=== PATIENT | female | born 1955 | race Caucasian/White ===

== ENCOUNTER 2019-08-22 09:28 | Outpatient (CLI) | payer BC, SELFPAY ==
--- NOTE | 2019-08-22 09:45 | XR_ITS ---
WS: [id number] Examination: Right hip postop HISTORY: Total hip replacement on the right. FINDINGS: A prosthesis is seen replacing the right femoral head with a acetabular cuff. The overall a lignment is satisfactory. There is no loosening of the stem of the shaft of the prosthesis. XR/XR femur RT min 2V* [id number] IMPRESSION: Total hip replacement satisfactory on the right side.
== END 2019-08-22 09:29 | disposition home or self-care (01) ==
PROVIDERS: Family Provider Nurse Practitioner Family; PCP Registered Nurse; Visit Provider Nurse Practitioner Family
DX: M79.604 Pain in right leg (principal); Z96.641 Presence of right artificial hip joint
CPT/HCPCS: 73552

== ENCOUNTER → 2020-08-25 00:01 | Outpatient (BNVA) | payer OTHER, SELFPAY | PROVIDERS: Family Provider Nurse Practitioner Family; PCP Registered Nurse; Visit Provider Obstetrics & Gynecology | DX: N95.0 Postmenopausal bleeding (principal) | CPT/HCPCS: 88175 ==

== ENCOUNTER → 2020-09-03 10:30 | Outpatient (BNVA) | payer OTHER, SELFPAY | PROVIDERS: Family Provider Nurse Practitioner Family; PCP Registered Nurse; Visit Provider Obstetrics & Gynecology | DX: N95.0 Postmenopausal bleeding (principal); D25.9 Leiomyoma of uterus, unspecified; N83.201 Unspecified ovarian cyst, right side | CPT/HCPCS: 76830 ==

== ENCOUNTER → 2020-09-16 11:42 | Outpatient (BNVA) | payer OTHER, SELFPAY | PROVIDERS: Family Provider Nurse Practitioner Family; PCP Registered Nurse; Visit Provider Orthopaedic Surgery | DX: M25.569 Pain in unspecified knee (principal); M17.12 Unilateral primary osteoarthritis, left knee | CPT/HCPCS: 73560; 73565 ==

== ENCOUNTER → 2020-09-17 10:07 | Outpatient (BNVA) | payer OTHER, SELFPAY | PROVIDERS: Family Provider Nurse Practitioner Family; PCP Registered Nurse; Visit Provider Obstetrics & Gynecology | DX: N95.0 Postmenopausal bleeding (principal) | CPT/HCPCS: 81500; 86304; 88175; 88305 ==

== ENCOUNTER → 2020-10-17 14:02 | Outpatient (BNVA) | payer OTHER, SELFPAY | PROVIDERS: Family Provider Nurse Practitioner Family; PCP Registered Nurse; Visit Provider Obstetrics & Gynecology | DX: Z01.812 Encounter for preprocedural laboratory examination (principal); Z20.822 Contact with and (suspected) exposure to COVID-19 | CPT/HCPCS: 87635 ==

== ENCOUNTER 2020-10-23 10:12 | Inpatient (IN) | payer OTHER, SELFPAY ==
[2020-10-21 12:21] VITALS: BMI 33.4
--- NOTE | 2020-10-21 14:29 | P.ANESASSM_ITS ---
Pre-Anesthetic Assessment Pre-Anesthetic Assessment: Height/Weight: Height 1.68 m Weight 93.894 kg Proposed Procedure: Operation Date: 10/23/20 07:10 Proposed Procedures p Total Abdominal Hysterectomy 60904 N95.0(Not Applicable) - Joe Chery MD s Salpingo Oophorectomy (Open)(Bilateral) - Joe Dick MD Was Beta Sally taken within 24 hours: N/A Was Clonidine taken within 24 hours: N/A Social: Social History: No alcohol and No tobacco Exam: Pre-Anes Outpt Exam: alert, oriented x 3, clear to auscultation bilaterally and regular rate & rhythm Airway: Submandibular: WNL Cervical ROM: WNL MP: 2 Dentition: Full History/ROS: No significant history except as noted CV/HEM: CV/HEM: HTN Metabolic: Metabolic: Morbid obesity Anesthetic Plan: ASA status: 2 Anesthesia: General Risk of > 500 ml blood loss (7ml/kg in children): No PFSH Anesthesia PFSH: Medical History No pertinent past medical history Denies diabetes, asthma, seizures, DVT/PE PCP: Diana Hendrickson Surgical History Status post hip replacement 2019, right side, 2015, left side Status post tonsillectomy at age 11 Family History Mother Stroke Uterine cancer diagnosed at age 81-82 Denies family history of Colon cancer Ovarian cancer Diabetes Heart disease Hyperlipidemia Breast cancer Hypertension Thyroid condition Social History Smoking and tobacco status: never smoked Second hand smoke exposure: No Data Anesthesia Cardiac Studies: No Data to Display
[2020-10-23] VITALS (17 sets, daily range): BP systolic 135–172; BP diastolic 64–97; PULSE 52–83; RESP 15–20; TEMP 36.3–37.1; O2SAT 95–100
[2020-10-23] MEDS: sodium chloride 0.9% 1,000 ML 30 ML IV (06:49)
[2020-10-23 06:53] LABS: Basophils % 0.3 %; Eosinophils # 0.2 10^3/uL (0.0-0.8); Eosinophils % 2.3 %; Hematocrit 43.5 % (37.0-47.0); Hemoglobin 14.9 g/dL (11.5-15.3); Lymphocytes # 1.9 10^3/uL (0.8-4.8); Lymphocytes % 27.9 %; Mean Corpuscular HGB Conc 34.3 g/dL (30.0-36.0); Mean Corpuscular Hemoglobin 30.3 pg (28.0-34.0); Mean Corpuscular Volume 88.4 fL (81-99); Monocytes # 0.7 10^3/uL (0.2-0.9); Monocytes % 9.8 %; Neutrophils # 4.05 10^3/uL (1.8-7.7); Neutrophils % 59.4 %; Nucleated Red Blood Cells % 0 %; Platelet Count 249 10^3/cmm (130-400); Red Blood Count 4.92 10^6/uL (4.1-5.3); Red Cell Distribution Width 13.1 % (12.1-15.1); White Blood Count 6.8 10^3/uL (4.0-10.0)
--- NOTE | 2020-10-23 06:55 | W.PM.OPSUD ---
Surgery/Procedure H&P Update DATE OF PROCEDURE: October 23, 2020 DATE H&P PERFORMED: 09/24/20 H&P UPDATE INFORMATION: I have reviewed H&P completed within last 30 days, I have examined patient prior to procedure, No changes to prior documentation and H&P is in [facility] [place] EMR on date indicated PREOP DIAGNOSIS: Ovarian cyst, endometrial polyp PLANNED PROCEDURE: Operation Date: 10/23/20 07:00 Proposed Procedures p Total Abdominal Hysterectomy 20782 N95.0(Not Applicable) - Joe Dick MD s Salpingo Oophorectomy(Bilateral) - Joe Dick MD
--- NOTE | 2020-10-23 07:06 | P.ANESUD_ITS ---
Pre-Anesthetic Update Pre-Anesthetic Assessment: Date of Surgery/Procedure: 10/23/20 Preop [place]et[place] gnosis: Ovarian cyst, endometrial polyp Proposed Procedure: Operation Date: 10/23/20 07:00 Proposed Procedures p Total Abdominal Hysterectomy 41367 N95.0(Not Applicable) - Joe Chery MD s Salpingo Oophorectomy(Bilateral) - Joe Dick MD Any changes to Pre-Anesthetic Assessment?: No Last Intake: Intake Last Liquid Date 10/22/20 Last Liquid Time 23:59 Last Solid Date 10/22/20 Last Solid Time 22:00 Labs Last 48hrs: Laboratory Results - last 48 hr 10/23/20 06:44 WBC 6.8 RBC 4.92 Hgb 14.9 Hct 43.5 MCV 88.4 MCH 30.3 MCHC 34.3 RDW 13.1 Plt Count 249 MPV 9.0 Neut % (Auto) 59.4 Lymph % (Auto) 27.9 Hitchcock % (Auto) 9.8 Eos % (Auto) 2.3 Baso % (Auto) 0.3 Neut # (Auto) 4.05 Lymph # (Auto) 1.9 Hitchcock # (Auto) 0.7 Eos # (Auto) 0.2 Baso # (Auto) 0.0 Nucleated RBC % (a uto) 0 Nucleated RBCs # 0.0 Vitals: Temperature 97.6 F 10/23/20 06:10 Temperature Source Temporal Artery S can 10/23/20 06:10 Pulse Rate 83 10/23/20 06:10 Respiratory Rate 18 10/23/20 06:10 Blood Pressure 165/89 10/23/20 06:10 Blood Pressure Kayleen n 114 10/23/20 06:10 Pulse Oximetry 98 10/23/20 06:10 Oxygen Delivery Me thod 10/23/20 06:10 Exam: Pre-Anes Outpt Exam: alert, oriented x 3, clear to auscultation bilaterally and regular rate & rhythm Cardiac Studies: No Data to Display
[2020-10-23 07:13] LABS: Alanine Aminotransferase 29 U/L (0-33); Albumin Level 4.1 g/dL (3.5-5.2); Alkaline Phosphatase 75 IU/L (35-105); Anion Gap 15.5 (5-19); Aspartate Amino Transferase 23 U/L (0-32); Blood Urea Nitrogen 15 mg/dL (8-23); Calcium 8.5 mg/dL (8.5-10.5); Carbon Dioxide 25 mmol/L (22-29); Chloride 101 mmol/L (98-107); Globulin 2.7 g/dL (1.3-4.6); Glomerular Filtration Rate 124.6 mL/min (90-130); Glucose 101 mg/dL (65-115); Osmolality Calculated 287 mOsm/kg (285-295); Potassium 3.5 mmol/L (3.5-5.1); Sodium 138 mmol/L (136-145); Total Bilirubin 1.8 mg/dL (0.15-1.2); Total Protein 6.8 g/dL (6.6-8.7)
[2020-10-23] MEDS: ondansetron 2 mg/ML SDV 2 mL 4 MG IVP (10:34)
--- NOTE | 2020-10-23 10:47 | P.OP_ITS ---
Operative Report Date of procedure: October 23, 2020 OPERATIVE REPORT Date of surgery: 10/23/2020 Date of dictation:10/23/2020 Preoperative diagnosis: Preoperative right ovarian cyst, postmenopausal bleeding, endometrial polyp, Postoperative diagnosis/findings: Normal tubes and ovaries bilaterally, small uterus with fibroid noted of the left fundus. Large thin-walled blue cyst noted as soon as abdominal entry-it was adherent to the posterior cul-de-sac and ruptured with about 700 mL of clear fluid collected from this no clear origin of the cyst however what appears consistent with ovarian tissue-no pedicle noted to the right ovary. Procedure done: Total abdominal hysterectomy, bilateral salpingo-oophorectomy and removal of right ovarian cyst Specimens removed/disposition of specimens: Bilateral tubes ovaries uterus and cervix, ovarian cyst likely right ovarian origin Surgeon: Dr. Joe Trevizo it administrative assistant: Jose Daniel Mcmahon Anesthesia: General endotracheal tube anesthesia Estimated blood loss: 300 ml Intravenous fluids: 1200 mL of LR Urine output: 150 mL of clear urine at the end of procedure Medications: as per anesthesia records Complications: None, patient was extubated and taken to the recovery room in a stable condition PROCEDURE: After consent was obtained patient was taken to the operating room where she was placed under general anesthesia. Sequential compression boots and Ugarte catheter were placed. She was prepped and draped in the usual sterile fashion in a dorsal supine position. A vertical skin incision was made with a knife starting below the navel and extending down to the pubic symphysis. This was carried down to the fascia with electrocautery and a scalpel. Fascia was incised in the midline and extended both superiorly and inferiorly. Rectus muscles were in the midline. Peritoneum was identified and was sharply entered. Peritoneal incision was extended superiorly and inferiorly. Good hemostasis was achieved. -Upon entry into the peritoneal cavity a large blue thin-walled cyst was noted in the lower abdomen and ovary bilaterally and uterus and not visualized because of the position of the cyst. Pedicle was not identified and bluntly cyst was palpated. It was noted to be adherent to the posterior cul-de-sac an attempt was made to try to break down these adhesions bluntly since this area could not be seen. Pelvic washings were taken at this time. -After completion of pelvic washings effort was made to try to move the cyst in order to see the remainder of the pelvic cavity however during this manipulation the cyst ruptured with copious amounts of clear serous fluid draining--this was suctioned and there was about 700ml of cyst fluid obtained. -Once the cyst had deflated the pelvis was able to be visualized and bilateral ovaries and tubes are noted and seen clearly. The uterus overall look normal except for a 2 cm fibroid-pedunculated off the left fundus. The cyst was still noted to be adherent to the posterior cul-de-sac and was difficult to reach and decision was made to proceed with a hysterectomy first. -At this time the bowel was packed away and pelvis was visualized. No adhesions to the anterior abdominal wall--findings on pelvis as noted above. A Bookwalter retractor was then placed and the bowel was packed away in the upper abdomen with wet laparotomy sponges. The pelvis was inspected. No other abnormalities were noted other than what was mentioned previously. The left ovarian vessels were identified and a window was made in the broad ligament under this and any clamps were clamped over the IP ligament in a double fashion. The IP ligament was cut and then First a Shana stitch and then a free tie was placed . Good hemostasis was noted. The right round ligament was clamped cut and suture ligated with 0 Vicryl suture. The broad ligament was opened and the fallopian tube and ovarian ligament was clamped, cut and suture ligated with 0 Vicryl suture in a near and far fashion. It was tied with a free tie of 0 Vicryl suture. The broad ligament incision was extended inferiorly and carried over the lower uterine segment. No adhesions were noted from the bladder onto the uterus and the bladder was pushed down over the uterus without difficulty. The bladder was noted to be intact without any tears. The uterine vessels were skeletonized clamped and tied off. The left round ligament was clamped, cut and suture ligated with 0 Vicryl suture. The broad ligament was opened and the incision carried superiorly parallel to the left ovarian vessels. The ovarian ligament, fallopian tube was doubly clamped, cut and suture ligated with 0 Vicryl suture. The pedicle was tied with a free tie of 0 Vicryl suture. The broad ligament incision was extended inferiorly and carried over the lower uterine segment to meet with the dissection the contralateral side and a bladder flap was created. The bladder was then off from the cervix without any difficulty. The left uterine vessels were skeletonized clamped and tied off. Curved clamps were placed at the level of the internal os. These were cut, and then tied with 0 Vicryl suture bilaterally. The bladder was then sharply dissected away from the cervix until it was carried below the level of the cervix. The remaining portion of the parametria was then serially clamped, cut, and suture ligated with 0 Vicryl suture bilaterally until the bottom of the cervix was reached. At this point, sharply curved clamps were placed across the top of the vagina and the remaining portion of the cervix excised. With this the uterus and cervix left ovary and tube were removed. The cervix was inspected and noted to be complete. Right tube and ovary also handed out as well. The corners of the cuff were secured with 0 Vicryl suture in a Shana fashion bilaterally. The remaining portion of the vaginal cuff was closed with 0 Vicryl suture in an interrupted [id number] fashion. The area was thoroughly inspected and noted to be hemostatic. It was irrigated and noted to be hemostatic. Attention was then turned towards the right fallopian tube and ovary. It was grasped with a [employer], IP ligament was in identified, the ureter was identified well away from the site of surgery. The IP ligament was then doubly clamped and suture ligated as well as free tied . With this the left fallopian tube and ovary was also removed and sent to pathology. Good hemostasis was noted at the IP ligament site. Bilateral ureters were visualized and good peristalsis was noted. Attention was then turned towards the cyst and now the adhesions were noted and seen clearly and were cut with Metzenbaums under direct visualization and the cyst was taken out. It did not appear to be attached to either ovary. Sites with the additions were in the cul-de-sac were oozing and were cauterized with care and Surgicel placed over this after irrigation. The pelvis was irrigated once again and small area of oozing near the left of was made hemostatic with a [id number] suture. With this good hemostasis was achieved. Surgicel was placed over the vaginal cuff. The packing and Bookwalter retractor was removed. The fascia, rectus muscles, and peritoneum were closed as a single layer using looped 0 PDS suture in a mass closure. The subcutaneous layer was irrigated and noted to be hemostatic. It was reapproximated using 2-0 plain sutures in a continuous fashion. The sub cutaneous pain was closed in 2 layers . The skin was reapproximated using skin joanne. Pressure dressing was applied onto the abdomen. Lap instrument and needle counts were correct x2. Patient was extubated without difficulty and taken to the recovery room in a stable condition. Ugarte catheter was left in place. This documentation was created by [employer] surveyor geophysical prospecting software (known for inherent surveyor geophysical prospecting error). Every effort was made to assure accuracy of surveyor geophysical prospecting. Any obvious errors or omissions should be clarified with the author of the document. Pre-op Diagnosis: Ovarian cyst, endometrial polyp
[2020-10-23] MEDS: promethazine 25 mg/mL SDV 1 mL IM (11:16)
[2020-10-23] MEDS: HYDROmorphone 1 mg/mL INJ 1 mL IVP ×2 (11:17→14:16)
[2020-10-23] MEDS: hydroCHLOROthiazide 25 mg Tablet PO (11:59)
[2020-10-23] MEDS: ibuprofen 800 mg tablet PO ×2 (11:59→19:33)
[2020-10-23] MEDS: MICARDIS 2 EACH PO (11:59)
[2020-10-23] MEDS: HYDROcodone-acetaminophen 5-325 mg Tablet PO ×2 (12:03→22:36)
--- NOTE | 2020-10-23 15:39 | ANE.PACU2 ---
Inpatient post-anesthesia follow up: Airway intact: Yes Vital signs: Temperature 97.8 F Pulse Rate 52 Respiratory Rate 18 Blood Pressure 165/92 Pulse Oximetry 99 Oxygen Delivery Me thod Room Air Oxygen Flow Rate 8 Fraction of Inspir ed Oxygen Hydration adequate: Yes Nausea and vomiting: No Pain level: 2 Mental status: Baseline
[2020-10-23] MEDS: dextrose 5%-lactated ringers 1,000 ML 125 ML IV (16:38)
--- NOTE | 2020-10-23 17:36 | PC.NURSE ---
Attempted to get patient to ambulate in the hallway. Patient refused and requested to go back to bed r/t her extreme nausea. Patient offered zofran per her PRN orders and patient refused. Patient also reports pain is a 6/7 but states she doesn't want to take the hydrocodone at 6 either. Patient reeducated about pain management and patient states she will see how she feels at 6pm.
[2020-10-23] MEDS: docusate sodium 100 mg Capsule PO (19:33)
[2020-10-23] MEDS: heparin 5,000 unit/mL INJ 1 mL 5000 UNIT SUBCUT (21:45)
[2020-10-24] MEDS: dextrose 5%-lactated ringers 1,000 ML 125 ML IV (01:31)
[2020-10-24 01:35] VITALS: BP 145/84; PULSE 84; RESP 16; TEMP 36.9
[2020-10-24] MEDS: ibuprofen 800 mg tablet PO ×2 (03:56→11:30)
[2020-10-24 04:13] VITALS: BP 164/81; PULSE 79; RESP 16; TEMP 36.6
[2020-10-24 04:43] LABS: Hematocrit 36.4 % (37.0-47.0); Hemoglobin 12.3 g/dL (11.5-15.3); Mean Corpuscular HGB Conc 33.8 g/dL (30.0-36.0); Mean Corpuscular Volume 88.8 fL (81-99); Mean Platelet Volume 9.3 fL (7.4-10.4); Platelet Count 238 10^3/cmm (130-400); Red Cell Distribution Width 13.1 % (12.1-15.1); White Blood Count 12.5 10^3/uL (4.0-10.0)
[2020-10-24 05:10] VITALS: BP 166/84
--- NOTE | 2020-10-24 06:20 | PC.NURSE ---
Dr. Trevizo updated on patients elevated blood pressures. Dr. Trevizo states to give patient her antihypertensive medication now instead of 0900.
[2020-10-24] MEDS: MICARDIS 2 EACH PO (06:30)
[2020-10-24] MEDS: hydroCHLOROthiazide 25 mg Tablet PO (06:30)
--- NOTE | 2020-10-24 09:03 | P.DS_ITS ---
Discharge Providers Date of Admission: 10/23/20 10:12 Date of Discharge: October 24, 2020 Attending Provider at Admission: Joe Dick MD Attending Provider at Discharge: Joe Dick MD Primary Care Provider: - Admission DIAGNOSIS: 65-year old 2 para 2-0-0-2 with postmenopausal bleeding Suspected endometrial polyp Large right ovarian cyst Chronic hypertension Osteoarthritis Discharge DIAGNOSIS: Status post total abdominal hysterectomy, bilateral salpingo-oophorectomy with cyst removal on 10/23/2020 Chronic hypertension PROCEDURE: Total abdominal hysterectomy, bilateral salpingo-oophorectomy with removal of cyst on 10/23/2020 ANESTHESIA: General Indication for surgery: Patient is a 65-year-old 2 para 2-0-0-2 who presented to the clinic with postmenopausal bleeding. Exam showed an endocervical polyp which was removed and endometrial biopsy which was negative. At time of exam she was noted cul-de-sac fullness and pelvic ultrasound showed a large 17 cm cyst that was thought to be arising from the right ovary. Tumor markers done showed low risk for malignancy with a low CA-125. After counseling patient decided to have also abdominal hysterectomy with bilateral salpingo-oophorectomy and presented on 10/23/2020 for scheduled surgery. She had no new complaints on the day of surgery Hospital course: She underwent an uncomplicated surgery as documented above. She did well on postoperative day 0 and was ambulating well, tolerating clear liquid diet. Pain was well-controlled with by mouth and IV pain medication. She denied nausea, vomiting, fever, chills, shortness of breath, leg pain. She had minimal vaginal bleeding. Ugarte catheter was kept overnight and she had adequate urine output. SCDs were maintained and she was started on heparin for DVT prophylaxis On postoperative day #1 she continued to do well with stable vital signs and stable hemoglobin at 12.3. Ugarte catheter was removed and patient was able to void with minimal residual noted on bladder scan. She ambulated well started passing flatus and then tolerated a regular diet. Incision was clean dry and intact with joanne. She was discharged home on postoperative day #1 in a stable condition As she felt she was fine and would be able to take care of herself at home.. Warning signs for wound infection, cuff infection, DVT/PE were reviewed with her. Post surgical activity restrictions were also reviewed with her at all her questions were answered to her satisfaction. This documentation was created by [employer] core shaper sides software (known for inherent core shaper sides error). Every effort was made to assure accuracy of core shaper sides. Any obvious errors or omissions should be clarified with the author of the document. Reason for Visit Reason for Visit: total abdominal hysterectomy Physical Exam Urinary Catheter Management^: Latex Free: Cath Placed During This Visit: yes, but has since been removed by the nurse Reason for Continuing Indwelling Catheter: Decision to DC Catheter Urinary Catheter Date of Insertion: 10/23/20 Urinary Catheter Time of Insertion: 07:20 Date Urinary Catheter Removed: 10/24/20 Time Urinary Catheter Discontinued: 06:35 Discharge Data Data Completed and Pending: Pending at discharge Category Date Time Status Retype for Gregg quintanilla ABO/Rh Routine Lab 10/23/20 07:49 Received Pathology: Surgic al [PTH] Routine Pth 10/23/20 09:57 Received Labs from last 24 hours 10/24/20 04:05 WBC 12.5 H RBC 4.10 Hgb 12.3 Hct 36.4 L MCV 88.8 MCH 30.0 MCHC 33.8 RDW 13.1 Plt Count 238 MPV 9.3 Vitals: Last Vital Signs Temp 97.9 F 10/24/20 04:13 Pulse 79 10/24/20 04:13 Resp 16 10/24/20 04:13 BP 166/84 10/24/20 05:10 Pulse Ox 95 10/23/20 22:45 Discharge Plan Discharge Patient Disposition: Home Condition: Stable Prescriptions: New ibuprofen 800 mg tablet 800 mg PO Q8H Qty: 30 RF: 0 docusate sodium 100 mg Capsule 100 mg PO BID PRN (Reason: constipation) Qty: 30 RF: 0 hydrocodone-acetaminophen 5-325 mg tablet 1 tab PO Q6H Qty: 25 RF: 0 Continued telmisartan [Micardis] 80 mg tablet 160 mg PO DAILY 90 Days Qty: 180 RF: 0 hydrochlorothiazide 25 mg tablet 25 mg PO DAILY Qty: 90 RF: 3 Discontinued acetaminophen [Tylenol Extra Strength] 500 mg tablet 1,000 mg PO QID PRN (Reason: Pain) RF: 0 Discharge Orders: Discharge Order (Routine); Ordered 10/24/20 Ordered By: Joe Dick Referrals: Joe Dick MD [Physician] - 10/29/20 10:45 am (2-week postop incision check is on 11.10.2020 at 2:45pm 6-week postop visit is on 12.02.2020t 12:15pm) Discharge Diet: Usual diet Patient Instructions: Abdominal Hysterectomy (DC), OB Abdominal Surgery - [facility], OB Discharge Report, OB Food/Drug Interaction Guide, Opioid Safety, Post Anesthesia Care Activity Restrictions/Additional Instructions: No heavy lifting for 6 weeks, pelvic rest for 6 weeks Discharge Attestations Time Spent in Discharge Care*: greater than 30 min Quality Metrics Clinical Quality Measures During this hospital stay, did patient experience: None Coding Level of Care Code Acute Chg FW DC note
[2020-10-24] MEDS: heparin 5,000 unit/mL INJ 1 mL 5000 UNIT SUBCUT (09:57)
[2020-10-24] MEDS: docusate sodium 100 mg Capsule PO (09:57)
[2020-10-24 10:04] VITALS: BP 154/77; PULSE 76; RESP 16; TEMP 36.8; O2SAT 96
[2020-10-24] MEDS: HYDROcodone-acetaminophen 5-325 mg Tablet PO (15:16)
[2020-10-24 15:30] VITALS: BP 160/90; PULSE 89; RESP 16; TEMP 36.7; O2SAT 96
== END 2020-10-24 15:30 | disposition home or self-care (01) | DRG 743 ==
LOC: OBGYN 14:32
PROVIDERS: Admitting Provider Obstetrics & Gynecology; PCP Registered Nurse; Visit Provider Obstetrics & Gynecology
PROC: 0UT90ZZ Resection of Uterus, Open Approach (ICD-10-PCS; CPT 58150; principal; 2020-10-23 07:00)
PROC: 0UT90ZZ Resection of Uterus, Open Approach (ICD-10-PCS; CPT 58720; 2020-10-23 07:00)
DX: N95.0 Postmenopausal bleeding (principal); N84.1 Polyp of cervix uteri; N83.201 Unspecified ovarian cyst, right side; D25.9 Leiomyoma of uterus, unspecified; I10 Essential (primary) hypertension; E66.01 Morbid (severe) obesity due to excess calories; M19.90 Unspecified osteoarthritis, unspecified site; Z68.33 Body mass index [BMI] 33.0-33.9, adult; Z80.49 Family history of malignant neoplasm of other genital organs; Z87.891 Personal history of nicotine dependence
CPT/HCPCS: 36415; 51798; 80053; 85025; 85027; 86850; 86900; 88112; 88305; 88307; 96372; J0690; J1100; J1170; J1644; J2405; J2550; J2704; J2710; J3010; J3490; J7030

== ENCOUNTER 2021-07-21 09:58 | Outpatient (CLI) | payer OTHER, SELFPAY ==
--- NOTE | 2021-07-21 11:30 | CT_ITS ---
WS: [id number] CT ABDOMEN PELVIS TECHNIQUE: Noncontrast CT of the abdomen and pelvis with coronal and sagittal reformatted images. CLINICAL INFORMATION: K43.9 - Ventral hernia without obstruction or gangrene COMPARISON: None. DLP: 1012.[address] scans at [facility] use at least one of these dose optimization techniques: automated e xposure control; mA and/or kV adjustment per patient size (includes targeted exams where dose is matc hed to clinical indication); or iterative reconstruction. FINDINGS: Mild hepatomegaly. Noncontrast liver otherwise normal. Normal spleen. Normal GE junction. Lung bases are well aerated. Slight atelectasis in the lung bases. Adrenal glands are normal. Normal GE junction . No hydronephrosis in either kidney. Mild fatty atrophy of the noncontrast pancreas. Normal caliber abdominal aorta. Mild aortic calcification. No periaortic or retroperitoneal lymphadenopathy. No inguinal lymphadenopathy. Postoperative changes bilateral THAs degrades images in the pelvis. This limits evaluation of the pelvis. Rectus abdominis diastases with wide mouth pelvic fat-containing ventral wall hernia containing a few loops of nonobst ructed small bowel proximally. Hernia mouth measures 6.0 cm. Tiny fat-containing umbilical hernia. Pr ior hysterectomy. Disc space narrowing L2-L3 L3-L4 L4-L5 and L5-S1. Disc osteophyte complexes in the lower thoracic spi ne at T11-T12 and T12-L1 with moderate central canal stenosis. CT/CT abdomen pelvis wo con [id number] IMPRESSION: 1. Bilateral THAs with beam hardening artifact degrades images in the pelvis. 2. Prior hysterectomy. 3. Rectus abdominis diastases with wide mouth ventral fat-containing ventral p elvic wall hernia. This contains a few loops of nonobstructed small bowel proxi ary. Wide hernia mouth measures 6.0 CM. 4. Tiny fat-containing umbilical hernia. 5. Mild hepatomegaly with enlargement of the right hepatic lobe. 6. No other acute abdominal or pelvic findings. 7. Disc osteophyte complexes with moderate central canal stenosis at T11-T12 a nd T12-L1.
== END 2021-07-21 09:59 | disposition home or self-care (01) ==
PROVIDERS: PCP Registered Nurse; Visit Provider Obstetrics & Gynecology
DX: K43.9 Ventral hernia without obstruction or gangrene (principal); Z96.643 Presence of artificial hip joint, bilateral; Z90.710 Acquired absence of both cervix and uterus; K42.9 Umbilical hernia without obstruction or gangrene; R16.0 Hepatomegaly, not elsewhere classified; M25.78 Osteophyte, vertebrae
CPT/HCPCS: 74176

== ENCOUNTER → 2021-12-30 09:43 | Outpatient (BNVA) | payer BC, SELFPAY | PROVIDERS: PCP Registered Nurse; Visit Provider Registered Nurse | DX: I10 Essential (primary) hypertension (principal) | CPT/HCPCS: 80053; 80061; 85025 ==

== ENCOUNTER → 2022-05-05 10:58 | Outpatient (BNVA) | payer OTHER, SELFPAY | PROVIDERS: PCP Registered Nurse; Visit Provider Orthopaedic Surgery | DX: M67.911 Unspecified disorder of synovium and tendon, right shoulder (principal) | CPT/HCPCS: 73030 ==

== ENCOUNTER → 2023-09-27 10:48 | Outpatient (BNVA) | payer OTHER, SELFPAY | PROVIDERS: PCP Registered Nurse; Visit Provider Registered Nurse | DX: I10 Essential (primary) hypertension (principal); E78.5 Hyperlipidemia, unspecified; E55.9 Vitamin D deficiency, unspecified | CPT/HCPCS: 80053; 80061; 82306; 83036; 85025 ==

== ENCOUNTER 2023-11-09 14:05 | Outpatient (CLI) | payer OTHER, SELFPAY ==
--- NOTE | 2023-11-09 14:00 | MM_ITS ---
WS: [id number] BILATERAL 3D TOMOSYNTHESIS DIGITAL SCREENING MAMMOGRAPHY WITH CAD CLINICAL INFORMATION: Z12.39 - Encounter for other screening for malignant neop... HISTORY: Screening mammogram. No current complaints. COMPARISON: New baseline TECHNIQUE: Bilateral CC and MLO views. FINDINGS: Scattered fibroglandular densities bilaterally. No suspicious focal mass, asymmetry, calcifications, or architectural distortion. No evidence of malignancy. A few incidental punctate calcifications. MM/[place] [id number] IMPRESSION: BI-RADS: 2-Benign FOLLOW UP: 1 Year Follow-up Recommend return to annual screening mammography.
== END 2023-11-09 14:06 | disposition home or self-care (01) ==
LOC: MOBLMAM 14:12
PROVIDERS: PCP Registered Nurse; Visit Provider Registered Nurse
DX: Z12.39 Encounter for other screening for malignant neoplasm of breast (principal); R92.323 Mammographic fibroglandular density, bilateral breasts
CPT/HCPCS: 77063; 77067

== ENCOUNTER → 2024-08-27 10:02 | Outpatient (BNVA) | payer OTHER, MEDICARE, SELFPAY | PROVIDERS: PCP Registered Nurse; Visit Provider Registered Nurse | DX: I10 Essential (primary) hypertension (principal) | CPT/HCPCS: 80053; 80061; 85025 ==